=== PATIENT | female | born 1945 | race Caucasian/White ===

== ENCOUNTER 2018-07-01 15:15 | Inpatient (IN) | payer MEDICARE, OTHER | END 2018-07-06 15:35 | LOC: SUR 3N 07-03 13:37 → PCU 3S 07-05 17:23 → ER 15:15 → ICU 2S 07-04 12:20 → CICU 2S 23:54 | PROC: 04CK0ZZ Extirpation of Matter from Right Femoral Artery, Open Approach (ICD-10-PCS; principal; 2018-07-02 21:45) | PROC: 04UK07Z Supplement Right Femoral Artery with Autologous Tissue Substitute, Open Approach (ICD-10-PCS; 2018-07-02 21:45) | DX: S37.022A Major contusion of left kidney, initial encounter (principal); S31.609A Unspecified open wound of abdominal wall, unspecified quadrant with penetration into peritoneal cavity, initial encounter; N39.0 Urinary tract infection, site not specified; I74.3 Embolism and thrombosis of arteries of the lower extremities; I13.0 Hypertensive heart and chronic kidney disease with heart failure and stage 1 through stage 4 chronic kidney disease, or unspecified chronic kidney disease; Y84.2 Radiological procedure and radiotherapy as the cause of abnormal reaction of the patient, or of later complication, without mention of misadventure at the time of the procedure; Y73.3 Surgical instruments, materials and gastroenterology and urology devices (including sutures) associated with adverse incidents; N18.3 Chronic kidney disease, stage 3 (moderate) ==

== ENCOUNTER 2020-09-18 11:31 | Day surgery (SDC) | payer MEDICARE, OTHER ==
[2020-09-18] VITALS (8 sets, daily range): BP systolic 160–182; BP diastolic 73–91
[~2020-09-18] VITALS: Ht 162.6 cm; Wt 97.4 kg
[~2020-09-18 11:31] MED LIST: ALB0.5UD IH; AMLO10TA28; ASPI-1265 PO; BUDE10.2 INH; CARV-49 PO; CETI10TA18 PO; CHOL100010 PO; CLON-529 PO; ESCI-8 PO; FURO-150 PO; GABA-338 PO; HYDR100T27 PO; LIDO700A47; LINA5TAB4 PO; LORA10TA7 PO; LOSA100T57 PO; MELA3TAB39 PO; MONT10TA32 PO; MULT-1085 PO; NITR0.4T SL; PANT-47 PO
[2020-09-18] MEDS ORDERED: midazolam 1 mg/ML 2ml injection ONE ×3 (11:55→13:35)
[2020-09-18] MEDS ORDERED: verapamil 2.5 mg/ml inj IV ONE ×2 (11:55→12:57)
[2020-09-18] MEDS ORDERED: fentaNYL/PF 50MCG/1 ML 2ML syringe ONE ×3 (11:55→13:35)
[2020-09-18] MEDS ORDERED: nitroGLYCERIN-Tridil 50MG/D5W 250 ML IV ONE ×2 (11:55→12:58)
[2020-09-18] MEDS ORDERED: LIDOcaine 1% (10mg/ml)w/preservative injection 20ml MDV ONE ×2 (11:55→12:58)
[2020-09-18] MEDS ORDERED: iohexol 350MG/ML 100ml bottle IV ONE ×2 (11:56→12:58)
[2020-09-18] MEDS ORDERED: heparin 1,000unit/ml 10ml vial 10 ML ONE ×2 (11:56→12:58)
[2020-09-18] MEDS ORDERED: normal saline 1,000 ML IV SCH (12:10)
[2020-09-18] MEDS ORDERED: diphenhydrAMINE 25mg capsule PO PRN (12:10)
[2020-09-18] MEDS ORDERED: LORazepam 0.5 MG tablet PO PRN (12:10)
[2020-09-18] MEDS ORDERED: LIDOcaine/PRILOcaine 5gm cream TP ONE (12:10)
[2020-09-18 12:34] LABS: BASOPHILS % (AUTO) 0.6 % (0-1); EOSINOPHILS # (AUTO) 0.4 X10'3 (0-0.9); EOSINOPHILS % (AUTO) 5.5 % (0-6); HEMATOCRIT 38.1 % (35.0-45.0); HEMOGLOBIN 12.6 g/dl (12.0-16.0); LYMPHOCYTES # (AUTO) 1.5 X10'3 (1.1-4.8); MEAN CORPUSCULAR HEMOGLOBIN 30.9 PG (27.0-31.0); MEAN CORPUSCULAR HGB CONC 33.1 g/dL (33.0-36.5); MEAN CORPUSCULAR VOLUME 93.3 FL (78-98); MEAN PLATELET VOLUME 10.9 FL (7.4-10.4); MONOCYTES # (AUTO) 0.8 X10'3 (0-0.9); MONOCYTES % (AUTO) 11.4 % (2-12); NEUTROPHILS # (AUTO) 4.2 X10'3 (1.8-7.7); NEUTROPHILS % (AUTO) 60.5 % (42-75); PLATELET COUNT 161 X10'3 (140-440); RED BLOOD COUNT 4.09 X10'6 (4.20-5.60); RED CELL DISTRIBUTION WIDTH 12.7 % (11.5-14.5)
[2020-09-18 12:44] LABS: PARTIAL THROMBOPLASTIN TIME 29 SECONDS (22-32)
[2020-09-18] MEDS ORDERED: PANT40TA54 PO (12:49)
[2020-09-18] MEDS ORDERED: ALBU18HF2 (12:49)
[2020-09-18] MEDS ORDERED: HYDR-3964 PO (12:49)
[2020-09-18] MEDS ORDERED: BENZ-49 PO (12:49)
[2020-09-18 12:50] LABS: ANION GAP 13 (8-16); BLOOD UREA NITROGEN 45 MG/DL (7-18); BUN/CREATININE RATIO 19.7 (6.6-38.0); CALCIUM 9.6 MG/DL (8.5-10.1); CHLORIDE 107 MMOL/L (99-107); CHOLESTEROL 252 MG/DL (0-200); CREATININE 2.28 MG/DL (0.40-0.90); GLUCOSE 107 MG/DL (70-104); HDL CHOLESTEROL 50 MG/DL (35-60); LDL CHOLESTEROL 153 MG/DL (50-100); POTASSIUM 3.7 MMOL/L (3.5-5.1); SODIUM 147 MMOL/L (135-145); TOTAL CARBON DIOXIDE 26.6 MMOL/L (24-32); TRIGLYCERIDES 202 MG/DL (20-135); eGFR 21 ML/MIN
[2020-09-18] MEDS ORDERED: FLUT1AER (12:52)
[2020-09-18] MEDS ORDERED: ACET-1025 PO (12:52)
[2020-09-18 12:55] LABS: LARGE PLATELETS FEW; PLATELET ESTIMATE NORMAL
[2020-09-18] MEDS ORDERED: proCHLORperazine 10 MG/2 ml inj IV PRN (15:00)
[2020-09-18] MEDS ORDERED: ondansetron/PF 4mg/2ml inj IV PRN (15:00)
[2020-09-18] MEDS ORDERED: HYDROcodone/acetaminophen 5mg/325mg tablet PO PRN (15:00)
[2020-09-18] MEDS ORDERED: HYDROcodone/acetaminophen 10/325mg tab PO PRN (15:00)
[2020-09-18] MEDS ORDERED: OXAZEpam 15mg capsule PO PRN (15:00)
== END 2020-09-18 18:15 | disposition home or self-care (01) ==
LOC: SSTAY O 11:31
PROVIDERS: ATTEND Internal Medicine Interventional Cardiology
DX: I35.0 Nonrheumatic aortic (valve) stenosis (principal); I25.10 Atherosclerotic heart disease of native coronary artery without angina pectoris; I77.1 Stricture of artery; I13.0 Hypertensive heart and chronic kidney disease with heart failure and stage 1 through stage 4 chronic kidney disease, or unspecified chronic kidney disease; N18.9 Chronic kidney disease, unspecified; I50.22 Chronic systolic (congestive) heart failure; J44.9 Chronic obstructive pulmonary disease, unspecified; E66.9 Obesity, unspecified; Z68.36 Body mass index [BMI] 36.0-36.9, adult; I42.9 Cardiomyopathy, unspecified; I65.21 Occlusion and stenosis of right carotid artery; I70.1 Atherosclerosis of renal artery; G47.33 Obstructive sleep apnea (adult) (pediatric); M19.90 Unspecified osteoarthritis, unspecified site; Z79.899 Other long term (current) drug therapy; Z79.82 Long term (current) use of aspirin; Z88.0 Allergy status to penicillin; Z88.1 Allergy status to other antibiotic agents; Z88.2 Allergy status to sulfonamides; Z88.8 Allergy status to other drugs, medicaments and biological substances
CPT/HCPCS: 36415; 80048; 80061; 85025; 85610; 85730; 93005; 93454; 99152; 99153; C1760; C1769; C1894; J1644; J2001; J2250; J3010; J7030; Q0163; Q9967; 85008; A4620; A5120; A6258; J3490

== ENCOUNTER → 2020-10-17 | Outpatient (CLI) | payer MEDICARE, OTHER ==
[~2020-10-17] VITALS: Ht 162.6 cm; Wt 96.6 kg
[~2020-10-17] MED LIST changes: +ACET-1025 PO; +ALBU18HF2; -AMLO10TA28; +BENZ-49 PO; -BUDE10.2 INH; -CETI10TA18 PO; -ESCI-8 PO; +FLUT1AER; +HYDR-3964 PO; -HYDR100T27 PO; -LIDO700A47; -MELA3TAB39 PO; -PANT-47 PO; +PANT40TA54 PO; +albuterol 2.5 MG/3 ML nebule NEB PRN
[2020-10-17 11:15] LABS: BASOPHILS # (AUTO) 0.1 X10'3 (0-0.2); BASOPHILS % (AUTO) 0.8 % (0-1); EOSINOPHILS # (AUTO) 0.4 X10'3 (0-0.9); EOSINOPHILS % (AUTO) 5.5 % (0-6); HEMATOCRIT 37.6 % (35.0-45.0); HEMOGLOBIN 12.8 g/dl (12.0-16.0); LYMPHOCYTES # (AUTO) 1.9 X10'3 (1.1-4.8); LYMPHOCYTES % (AUTO) 24.1 % (21-51); MEAN CORPUSCULAR HEMOGLOBIN 31.1 PG (27.0-31.0); MEAN CORPUSCULAR VOLUME 91.6 FL (78-98); MEAN PLATELET VOLUME 10.8 FL (7.4-10.4); MONOCYTES # (AUTO) 0.9 X10'3 (0-0.9); MONOCYTES % (AUTO) 10.6 % (2-12); NEUTROPHILS # (AUTO) 4.7 X10'3 (1.8-7.7); PLATELET COUNT 167 X10'3 (140-440); RED CELL DISTRIBUTION WIDTH 12.5 % (11.5-14.5); WHITE BLOOD COUNT 8.1 X10'3 (4.5-11.0)
[2020-10-17 11:27] LABS: PARTIAL THROMBOPLASTIN TIME 29 SECONDS (22-32)
[2020-10-17 11:31] LABS: ALANINE AMINOTRANSFERASE 29 U/L (12-78); ALBUMIN 3.7 G/DL (3.4-5.0); ALKALINE PHOSPHATASE 108 IU/L (46-116); ANION GAP 9 (8-16); ASPARTATE AMINO TRANSFERASE 23 U/L (10-37); BILIRUBIN,TOTAL 0.4 MG/DL (0.1-1.0); BLOOD UREA NITROGEN 36 MG/DL (7-18); BUN/CREATININE RATIO 16.1 (6.6-38.0); CALCIUM 9.1 MG/DL (8.5-10.1); CHLORIDE 107 MMOL/L (99-107); CREATININE 2.23 MG/DL (0.40-0.90); GLUCOSE 113 MG/DL (70-104); SODIUM 145 MMOL/L (135-145); TOTAL CARBON DIOXIDE 28.9 MMOL/L (24-32); TOTAL PROTEIN 7.4 G/DL (6.4-8.2); eGFR 21 ML/MIN
[2020-10-17 13:24] LABS: ABG BASE EXCESS 2.4 mmol/L (-2.0-2.0); ABG HCO3 26.3 mmol/L (22.0-26.0); ABG OXYGEN SATURATION 94.6 % (94-97); ABG PCO2 (T) 38.3 mmHg (32.0-45.0); ABG PO2 (T) 71.5 mmHg (75.0-100.0); ALLEN'S TEST POSITIVE; FCOHb 0.4 % (0.0-3.9); FMetHb 0.1 % (0.0-1.5); FO2Hb 94.1 % (94-97); TOTAL HEMOGLOBIN 13.2 G/dl (12.0-16.0)
== END | disposition home or self-care (01) ==
LOC: RAD 10:37
PROVIDERS: ATTEND Internal Medicine Cardiovascular Disease
DX: K80.20 Calculus of gallbladder without cholecystitis without obstruction (principal); M51.36 Other intervertebral disc degeneration, lumbar region; N26.1 Atrophy of kidney (terminal); K44.9 Diaphragmatic hernia without obstruction or gangrene; I65.23 Occlusion and stenosis of bilateral carotid arteries; I34.0 Nonrheumatic mitral (valve) insufficiency; R94.2 Abnormal results of pulmonary function studies
CPT/HCPCS: 36600; 71046; 71275; 74174; 80053; 82803; 85018; 85025; 85610; 85730; 94060; 94727; 94729; 94760; Q9967

== ENCOUNTER 2020-10-25 08:56 | Day surgery (SDC) | payer MEDICARE, OTHER ==
[~2020-10-25] VITALS: Ht 160 cm; Wt 99.8 kg
[~2020-10-25 08:56] MED LIST changes: -albuterol 2.5 MG/3 ML nebule NEB PRN
[2020-10-25] MEDS ORDERED: normal saline 1000ml 1,000 ML IV SCH (09:30)
[2020-10-25] MEDS ORDERED: metoprolol tartrate 1mg/ml inj IV PRN (09:30)
[2020-10-25] MEDS ORDERED: atropine 1 MG/1 ML vial IV PRN (09:35)
[2020-10-25 10:25] LABS: ALANINE AMINOTRANSFERASE 32 U/L (12-78); ALBUMIN 3.6 G/DL (3.4-5.0); ALBUMIN/GLOBULIN RATIO 1.1 (1.1-1.5); ALKALINE PHOSPHATASE 90 IU/L (46-116); ANION GAP 8 (8-16); ASPARTATE AMINO TRANSFERASE 29 U/L (10-37); BILIRUBIN,TOTAL 0.7 MG/DL (0.1-1.0); BLOOD UREA NITROGEN 34 MG/DL (7-18); BUN/CREATININE RATIO 17.6 (6.6-38.0); CALCIUM 7.9 MG/DL (8.5-10.1); CHLORIDE 108 MMOL/L (99-107); CREATININE 1.93 MG/DL (0.40-0.90); GLUCOSE 105 MG/DL (70-104); POTASSIUM 3.5 MMOL/L (3.5-5.1); SODIUM 141 MMOL/L (135-145); TOTAL CARBON DIOXIDE 25.2 MMOL/L (24-32); TOTAL PROTEIN 6.9 G/DL (6.4-8.2); eGFR 25 ML/MIN
[2020-10-25 10:27] VITALS: BP 176/72
[2020-10-25] MEDS ORDERED: iohexol 350MG/ML 100ml bottle IV ONE (11:56)
--- NOTE | 2020-10-25 12:15 | NUR ---
Patient left with ct staff, ora Ponce RN was notified for procedure, supervisor wall mirror department was notified. Patient came back to short stay, resuming normal saline fluids per md orders for 2 more hours.
[2020-10-25 15:00] VITALS: BP 168/80
--- NOTE | 2020-10-25 15:38 | NUR ---
Patients [employer] tablet model [id number] 16 GB device was cracked underneath the gurney. Patient and I knew it was not cracked before we put it underneath with her belongings. I called admin and talked to Karmen and she stated to get her information, name, contact, address and tablet info. I called her back with all of the above information, the patient was given Karmen's phone number in admin for her to submit a receipt for the new tablet when the patient buys one. Patient understands instructions.
== END 2020-10-25 15:15 | disposition home or self-care (01) ==
LOC: SSTAY O 08:56
PROVIDERS: ATTEND Internal Medicine Cardiovascular Disease
DX: I35.0 Nonrheumatic aortic (valve) stenosis (principal); I65.23 Occlusion and stenosis of bilateral carotid arteries; R06.02 Shortness of breath; Z88.2 Allergy status to sulfonamides; Z88.0 Allergy status to penicillin; Z88.8 Allergy status to other drugs, medicaments and biological substances; Z88.1 Allergy status to other antibiotic agents; Z91.09 Other allergy status, other than to drugs and biological substances; Z98.1 Arthrodesis status; Z90.710 Acquired absence of both cervix and uterus; Z96.653 Presence of artificial knee joint, bilateral; Z79.899 Other long term (current) drug therapy; Z82.3 Family history of stroke; Z82.49 Family history of ischemic heart disease and other diseases of the circulatory system; Z83.6 Family history of other diseases of the respiratory system
CPT/HCPCS: 36415; 70496; 70498; 80053; 82948; 93005; Q9967